=== PATIENT | female | born 1985 | race African-American/Black ===

== ENCOUNTER 2019-12-11 08:40 | Observation (INO) | payer MEDICAID | END 2019-12-11 11:15 | disposition home or self-care (01) | DRG 566 | LOC: LDRP 08:40 | PROVIDERS: ADMIT Specialist; ATTEND Specialist | DX: O62.9 Abnormality of forces of labor, unspecified (principal); Z3A.00 Weeks of gestation of pregnancy not specified | CPT/HCPCS: 59025; 76818; 81002; G0378 ==